=== PATIENT | male | born 1960 | race Caucasian/White ===

== ENCOUNTER 2017-09-02 08:04 | Emergency (ER) | payer OTHER ==
[~2017-09-02] VITALS: Ht 180.3 cm; Wt 117.0 kg
[~2017-09-02 08:04] MED LIST: AMLO5TAB22 PO; COUM5TAB PO; LANTINJ SC; LEVO88TA2 PO; LISI10TA PO; METO50TA11 PO; NOVOLOGP2 SQ; PERC10TA26 PO; SPIR25TA PO; VITA3000 PO; ZOCO40TA PO
[2017-09-02 08:13] VITALS: BP 171/94; PULSE 70; RESP 16; TEMP 98.5; O2SAT 99
[2017-09-02 08:25] LABS: BLOOD, URINE SMALL (NEG); GLUCOSE,URINE 250 mg/dL (NEG); KETONE, URINE NEG (NEG); NITRITE,URINE NEG (NEG)
[2017-09-02] MEDS ORDERED: CARV25TA PO (08:25)
[2017-09-02] MEDS ORDERED: ATOR80TA45 PO (08:25)
[2017-09-02] MEDS ORDERED: ISOS60TA PO (08:25)
[2017-09-02] MEDS ORDERED: LEVEMIR SQ (08:25)
[2017-09-02] MEDS ORDERED: RAMI10CA PO (08:25)
[2017-09-02] MEDS ORDERED: FURO1TAB60 PO (08:25)
[2017-09-02] MEDS ORDERED: NOVORP2 SQ (08:25)
[2017-09-02 08:33] LABS: METHOD OF COLLECTION CLEAN CATCH
[2017-09-02 08:34] LABS: COMMENT (UR) CULT NOT INDICATED; CULTURE IF INDICATED CULT NOT INDICATED; RBC, URINE 0-3 /hpf (0-3); SQUAMOUS EPITHELIAL CELL URINE 0-5 /hpf (0-5); URINE COLOR YELLOW (YELLW/STRAW)
[2017-09-02] MEDS ORDERED: MORPHINE SULFATE 4 MG/ML INJ IV PUSH ONE (08:45)
[2017-09-02] MEDS ORDERED: KETOROLAC TROMETHAMINE 30 MG/ML (IVP) VIAL IV PUSH ONE (08:45)
[2017-09-02] MEDS ORDERED: ONDANSETRON HCL 4 MG/2 ML VIAL IV PUSH ONE (08:45)
[2017-09-02] MEDS ORDERED: SODIUM CHLOR 0.9% 1000 ML INJ 1,000 ML IV ONE ×2 (08:45→09:30)
[2017-09-02 08:47] LABS: AUTOMATED NEUTROPHIL # 4.9 TH/MM3 (1.8-7.7); BASOPHIL % 0.5 % (0.0-2.0); EOSINOPHIL # 0.2 TH/MM3 (0-0.4); EOSINOPHIL % 2.4 % (0.0-4.0); HEMATOCRIT 46.3 % (39.0-51.0); HEMO FLAGS DIFF FINAL; LYMPH % 13.8 % (9.0-44.0); LYMPHOCYTE # 0.9 TH/MM3 (1.0-4.8); MEAN CORPUSCULAR HGB CONC 31.6 % (32.0-36.0); NEUT % 76.3 % (16.0-70.0); PLATELET COUNT 238 TH/MM3 (150-450); RED BLOOD COUNT 4.87 MIL/MM3 (4.50-5.90); RED CELL DISTRIBUTION WIDTH 14.4 % (11.6-17.2); WHITE BLOOD COUNT 6.5 TH/MM3 (4.0-11.0)
[2017-09-02 08:55] LABS: CHLORIDE 102 MEQ/L (98-107); POTASSIUM 4.2 MEQ/L (3.5-5.1); SODIUM (NA) 135 MEQ/L (136-145)
[2017-09-02 08:59] LABS: ANION GAP 8 MEQ/L (5-15); BICARBONATE 24.8 MEQ/L (21.0-32.0); BLOOD UREA NITROGEN 30 MG/DL (7-18)
[2017-09-02 09:02] LABS: ALT (GPT) 33 U/L (12-78); AST (GOT) 22 U/L (15-37); GLOMERULAR FILTRATION RATE 31 ML/MIN (>89)
[2017-09-02 09:03] LABS: TOTAL BILIRUBIN ADULT 0.8 MG/DL (0.2-1.0)
[2017-09-02 09:05] LABS: ALKALINE PHOSPHATASE 113 U/L (45-117)
--- NOTE | 2017-09-02 09:14 | RADRPT ---
EXAM DATE/TIME: 09/02/2017 08:53 [facility] COMPARISON: No previous studies available for comparison. INDICATIONS : Right flank pain. Low back pain. ORAL CONTRAST: No oral contrast ingested. RADIATION DOSE: 24.98 CTDIvol (mGy) MEDICAL HISTORY : Diabetes mellitus type 2. Renal calculi. Cerebrovascular disease. SURGICAL HISTORY : Appendectomy. Hernia repair. ENCOUNTER: Initial ACUITY: 2 days PAIN SCALE: 7/10 LOCATION: Right flank TECHNIQUE: Volumetric scanning of the abdomen and pelvis was performed. Using automated exposure control and ad justment of the mA and/or kV according to patient size, radiation dose was kept as low as reasonably achievable to obtain optimal diagnostic quality images. DICOM format image data is available electro nically for review and comparison. FINDINGS: LOWER LUNGS: The visualized lower lungs are clear. LIVER: Homogeneous density without lesion. There is no dilation of the biliary tree. No calcified gallston es. SPLEEN: Normal size without lesion. PANCREAS: Within normal limits. KIDNEYS: Kidneys are symmetrical in size without evidence for radiopaque renal calculi or hydronephrosis. Lobu lated contours without significant contour deforming renal abnormalities. ADRENAL GLANDS: Within normal limits. VASCULAR: There is no aortic aneurysm. BOWEL/MESENTERY: The stomach, small bowel, and colon demonstrate no acute abnormality. There is no free intraperitone al air or fluid. ABDOMINAL WALL: Intra-abdominal wall hernia mesh repair. RETROPERITONEUM: There is no lymphadenopathy. BLADDER: Unremarkable. REPRODUCTIVE: Within normal limits. INGUINAL: There is no lymphadenopathy or hernia. MUSCULOSKELETAL: Within normal limits for patient age. CONCLUSION: 1. No acute CT findings in the abdomen or pelvis. Specifically, No radiopaque renal calculi or obstru ctive uropathy. 2. Intact anterior abdominal wall hernia mesh repair. Donny Starr MD on September 02, 2017 at 9:07 Board Certified Radiologist. This report was verified electronically.
[2017-09-02 09:38] VITALS: BP 144/73; PULSE 67; RESP 20; O2SAT 94
[2017-09-02 10:34] VITALS: BP 159/82; PULSE 67; RESP 16; O2SAT 91
[2017-09-02] MEDS ORDERED: TRAM50TA PO (10:45)
--- NOTE | 2017-09-02 10:45 | PD ---
HPI Chief Complaint: Flank/Kidney Pain Time Seen by Provider: 08:22 Travel History International Travel<30 days: No Contact w/Intl Traveler<30days: No Traveled to known affect area: No History of Present Illness HPI This is a 57-year-old male who presents to the emergency department with back pain that's been going on for 3 days, intermittent, worse with laying down at night and worse with movement, nonradiating, associated with some nausea and vomiting. Patient thought he might of a kidney stone because he's had in the past. He denies any fevers or chills and denies any recent injuries. PFSH Past Medical History Cancer: No Cardiovascular Problems: No High Cholesterol: Yes Cerebrovascular Accident: Yes Diabetes: Yes Patient Takes Glucophage: No Diminished Hearing: Yes ([place] RT EAR) Endocrine: Yes Genitourinary: No Hepatitis: No Hiatal Hernia: No Hypertension: Yes Immune Disorder: No Musculoskeletal: No Neurologic: Yes (STROKE HX/ LEFT SIDE WEAKNESS) Psychiatric: No Respiratory: No Thyroid Disease: Yes Influenza Vaccination: Yes ?: Not Past Surgical History Abdominal Surgery: Yes (APPY) AICD: No Appendectomy: Yes Genitourinary Surgery: Yes (MULTI ESWL) Joint Replacement: No Pacemaker: No Other Surgery: Yes Social History Alcohol Use: Yes Tobacco Use: No Substance Use: No Allergies-Medications (Allergen,Severity, Reaction): Coded Allergies: No Known Allergies (Verified Adverse Reaction, Unknown, 09/02/17) Reported Meds & Prescriptions Reported Meds & Active Scripts Active Reported Levemir Inj (Insulin Detemir) 1,000 unit/ 10 ML Vial 30 Units SQ HS Do not mix with any other Insulin. Lasix (Furosemide) 40 Mg Tab 40 Mg PO DAILY Ramipril 10 Mg Cap 10 Mg PO BID Carvedilol 25 Mg Tab 25 Mg PO BID Isosorbide Mononitrate ER (Isosorbide Mononitrate) 60 Mg Tab 60 Mg PO DAILY Atorvastatin (Atorvastatin Calcium) 80 Mg Tab 80 Mg PO DAILY Novolin R Inj (Insulin Human Regular) 1,000 Unit/10 Ml Vial 0 SQ DIRECTED Sliding Scale As Directed. Review of Systems Except as stated in HPI: all other systems reviewed are Neg Physical Exam Narrative GENERAL:Well appearing, no acute distress SKIN: Focused skin assessment warm and dry. HEAD: Atraumatic. Normocephalic. EYES: Pupils equal and round. No injection or drainage. ENT: Moist mucous membranes NECK: Trachea midline. CARDIOVASCULAR: Regular rate and rhythm. No murmur appreciated. RESPIRATORY: Clear to auscultation. Breath sounds equal bilaterally. GASTROINTESTINAL: Abdomen soft, non-tender, nondistended. MUSCULOSKELETAL: Tender to palpation over the bilateral lower lumbar paraspinal muscles with no focal vertebral tenderness. NEUROLOGICAL: Awake and alert. No obvious cranial nerve deficits. Moving all extremities. PSYCHIATRIC: Appropriate mood and affect; insight and judgment normal. Data Data Last Documented VS Vital Signs Date Time Temp Pulse Resp B/P (MAP) Pulse Ox O2 Delivery O2 Flow Rate FiO2 09/02/17 10:34 67 16 159/82 (107) 91 Room Air 09/02/17 08:13 98.5 Orders Orders Urinalysis - C+S If Indicated (09/02/17 08:19) Ct Abd/Pel W/O Iv Contrast (09/02/17 ) Complete Blood Count With Diff (09/02/17 08:35) Comprehensive Metabolic Panel (09/02/17 08:35) ^ Insert Iv (09/02/17 08:35) Sodium Chlor 0.9% 1000 Ml Inj (Ns 1000 M (09/02/17 08:45) Ketorolac Inj (Toradol Inj) (09/02/17 08:45) Ondansetron Inj (Zofran Inj) (09/02/17 08:45) Morphine Inj (Morphine Inj) (09/02/17 08:45) Sodium Chlor 0.9% 1000 Ml Inj (Ns 1000 M (09/02/17 09:30) Creatine Kinase (Cpk) (09/02/17 09:25) Lipase (09/02/17 09:26) Labs Laboratory Tests Test 09/02/17 08:20 09/02/17 08:40 09/02/17 09:36 Urine Collection Type CLEAN CATCH Urine Color YELLOW Urine Turbidity CLEAR Urine pH 6.0 Urine Specific [place] 1.014 Urine Protein 100 mg/dL Urine Glucose (UA) 250 mg/dL Urine Ketones NEG mg/dL Urine Occult Blood SMALL Urine Nitrite NEG Urine Bilirubin NEG Urine Leukocyte Esterase NEG Urine RBC 0-3 /hpf Urine Squamous Epithelial Cells 0-5 /hpf Microscopic Urinalysis Comment CULT NOT INDICATED Urine Collection Time 08:20 White Blood Count 6.5 TH/MM3 Red Blood Count 4.87 MIL/MM3 Hemoglobin 14.6 GM/DL Hematocrit 46.3 % Mean Corpuscular Volume 95.0 FL Mean Corpuscular Hemoglobin 30.0 PG Mean Corpuscular Hemoglobin Concent 31.6 % Red Cell Distribution Width 14.4 % Platelet Count 238 TH/MM3 Mean Platelet Volume 8.0 FL Neutrophils (%) (Auto) 76.3 % Lymphocytes (%) (Auto) 13.8 % Monocytes (%) (Auto) 7.0 % Eosinophils (%) (Auto) 2.4 % Basophils (%) (Auto) 0.5 % Neutrophils # (Auto) 4.9 TH/MM3 Lymphocytes # (Auto) 0.9 TH/MM3 Monocytes # (Auto) 0.5 TH/MM3 Eosinophils # (Auto) 0.2 TH/MM3 Basophils # (Auto) 0.0 TH/MM3 CBC Comment DIFF FINAL Differential Comment Blood Urea Nitrogen 30 MG/DL Creatinine 2.20 MG/DL Random Glucose 184 MG/DL Total Protein 7.6 GM/DL Albumin 3.5 GM/DL Calcium Level 8.3 MG/DL Alkaline Phosphatase 113 U/L Aspartate Amino Transf (AST/SGOT) 22 U/L Alanine Aminotransferase (ALT/SGPT) 33 U/L Total Bilirubin 0.8 MG/DL Sodium Level 135 MEQ/L Potassium Level 4.2 MEQ/L Chloride Level 102 MEQ/L Carbon Dioxide Level 24.8 MEQ/L Anion Gap 8 MEQ/L Estimat Glomerular Filtration Rate 31 ML/MIN Total Creatine Kinase 137 U/L Lipase 375 U/L MDM Medical Decision Making Medical Screen Exam Complete: Yes Emergency Medical Condition: Yes Interpretation(s) Afebrile, no tachycardia, hypertension improved throughout stay No leukocytosis Renal insufficiency similar to prior CK is normal Lipase is normal Urinalysis demonstrates glucosuria Last 24 hours Impressions Abdomen/Pelvis CT 09/02/17 0000 Signed Impressions: Service Date/Time: Saturday, September 02, 2017 08:53 - CONCLUSION: 1. No acute CT findings in the abdomen or pelvis. Specifically, No radiopaque renal calculi or obstructive uropathy. 2. Intact anterior abdominal wall hernia mesh repair. Donny Starr MD Differential Diagnosis Nephrolithiasis, degenerative disc disease, herniated disc, abdominal aortic aneurysm, urinary tract infection Narrative Course This is a 57-year-old male who presents to the emergency department with low back pain that's been going on for 3 days associated with some nausea and vomiting. He has a benign abdominal exam. Labs are obtained which were all reassuring. CT abdomen and pelvis and lumbar spine are reassuring. I am Uncertain which causing his pain. I think it's likely musculoskeletal given the positional component. I think we've adequately ruled out life threats in the emergency department. He'll be discharged on a short course of tramadol and was asked to follow-up with his primary care physician. He was given 2 L of IV fluids in the setting of slightly worsening renal insufficiency Diagnosis Primary Impression: Musculoskeletal back pain Patient Instructions: General Instructions Additional Instructions: If you develop weakness of your legs, difficulty walking, numbness of your legs or your genital or rectal area, loss of your bowel or bladder, or difficulty urinating return to the emergency department immediately. Followup with your primary care physician in one week if your symptoms have not improved. Med/Other Pt SpecificInfo: Prescription(s) given Scripts Tramadol (Tramadol) 50 Mg Tab 50 MG PO Q6H Y for PAIN, #15 TAB 0 Refills Prov: Kathia Lopez MD 09/02/17 Disposition: 01 DISCHARGE HOME Condition: Stable Kathia Lopez MD Sep 02, 2017 10:45
== END 2017-09-02 11:08 | disposition home or self-care (01) ==
LOC: PHED 08:04
DX: M54.5 Low back pain (principal); R11.2 Nausea with vomiting, unspecified; N28.9 Disorder of kidney and ureter, unspecified; E11.9 Type 2 diabetes mellitus without complications; E78.00 Pure hypercholesterolemia, unspecified; I10 Essential (primary) hypertension; Z79.4 Long term (current) use of insulin; Z87.442 Personal history of urinary calculi
CPT/HCPCS: 74176; 80053; 81001; 82550; 83690; 85025; 96361; 96374; 96375; 99285; J1885; J2270; J2405; J7030

== ENCOUNTER 2017-09-04 14:48 | Emergency (ER) | payer OTHER ==
[~2017-09-04] VITALS: Ht 180.3 cm; Wt 116.0 kg
[~2017-09-04 14:48] MED LIST changes: -AMLO5TAB22 PO; +ATOR80TA45 PO; +CARV25TA PO; -COUM5TAB PO; +FURO1TAB60 PO; +ISOS60TA PO; -LANTINJ SC; +LEVEMIR SQ; -LEVO88TA2 PO; -LISI10TA PO; -METO50TA11 PO; -NOVOLOGP2 SQ; +NOVORP2 SQ; -PERC10TA26 PO; +RAMI10CA PO; -SPIR25TA PO; +TRAM50TA PO; -VITA3000 PO; -ZOCO40TA PO
[2017-09-04 15:35] VITALS: BP 171/75; PULSE 65; RESP 18; TEMP 98.8; O2SAT 98
--- NOTE | 2017-09-04 16:29 | PD ---
HPI Chief Complaint: Flank/Kidney Pain Time Seen by Provider: 16:28 Travel History International Travel<30 days: No Contact w/Intl Traveler<30days: No Traveled to known affect area: No History of Present Illness HPI PMHX: HYPERCHOL, HTN, KIDNEY STONES, PFSH Past Medical History Cancer: No Cardiovascular Problems: No High Cholesterol: Yes Cerebrovascular Accident: Yes Diabetes: Yes Diminished Hearing: Yes ([place] RT EAR) Endocrine: Yes Genitourinary: No Hepatitis: No Hiatal Hernia: No Hypertension: Yes Immune Disorder: No Musculoskeletal: No Neurologic: Yes (STROKE HX/ LEFT SIDE WEAKNESS) Psychiatric: No Respiratory: No Thyroid Disease: Yes Past Surgical History Abdominal Surgery: Yes (APPY) AICD: No Appendectomy: Yes Genitourinary Surgery: Yes (MULTI ESWL) Joint Replacement: No Pacemaker: No Other Surgery: Yes Social History Alcohol Use: Yes Tobacco Use: No Substance Use: No Allergies-Medications (Allergen,Severity, Reaction): Coded Allergies: No Known Allergies (Verified Adverse Reaction, Unknown, 09/04/17) Reported Meds & Prescriptions Reported Meds & Active Scripts Active Tramadol (Tramadol HCl) 50 Mg Tab 50 Mg PO Q6H PRN Reported Levemir Inj (Insulin Detemir) 1,000 unit/ 10 ML Vial 30 Units SQ HS Do not mix with any other Insulin. Lasix (Furosemide) 40 Mg Tab 40 Mg PO DAILY Ramipril 10 Mg Cap 10 Mg PO BID Carvedilol 25 Mg Tab 25 Mg PO BID Isosorbide Mononitrate ER (Isosorbide Mononitrate) 60 Mg Tab 60 Mg PO DAILY Atorvastatin (Atorvastatin Calcium) 80 Mg Tab 80 Mg PO DAILY Novolin R Inj (Insulin Human Regular) 1,000 Unit/10 Ml Vial 0 SQ DIRECTED Sliding Scale As Directed. Data Data Last Documented VS Vital Signs Date Time Temp Pulse Resp B/P (MAP) Pulse Ox O2 Delivery O2 Flow Rate FiO2 09/04/17 19:15 75 16 99 09/04/17 19:02 Room Air 09/04/17 18:38 2.00 09/04/17 15:35 98.8 Orders Orders Urinalysis - C+S If Indicated (09/04/17 15:32) Complete Blood Count With Diff (09/04/17 16:34) Comprehensive Metabolic Panel (09/04/17 16:34) Lipase (09/04/17 16:34) Iv Access Insert/Monitor (09/04/17 16:34) Ecg Monitoring (09/04/17 16:34) Oximetry (09/04/17 16:34) NPO (09/04/17 16:34) Morphine Inj (Morphine Inj) (09/04/17 16:45) Ondansetron Inj (Zofran Inj) (09/04/17 16:45) Sodium Chlor 0.9% 1000 Ml Inj (Ns 1000 M (09/04/17 16:34) Ketorolac Inj (Toradol Inj) (09/04/17 16:45) Ct Abd/Pel W/O Iv Contrast (09/04/17 17:24) Hydralazine Inj (Apresoline Inj) (09/04/17 18:45) Ed Discharge Order (09/04/17 18:59) Labs Laboratory Tests Test 09/04/17 16:20 09/04/17 16:45 Urine Collection Type CLEAN CATCH Urine Color YELLOW Urine Turbidity CLEAR Urine pH 6.5 Urine Specific [place] 1.017 Urine Protein 100 mg/dL Urine Glucose (UA) 100 mg/dL Urine Ketones NEG mg/dL Urine Occult Blood TRACE Urine Nitrite NEG Urine Bilirubin NEG Urine Leukocyte Esterase NEG Urine Squamous Epithelial Cells 0-5 /hpf Urine Amorphous Sediment FEW Microscopic Urinalysis Comment CULT NOT INDICATED Urine Collection Time 1620 White Blood Count 7.3 TH/MM3 Red Blood Count 4.72 MIL/MM3 Hemoglobin 14.4 GM/DL Hematocrit 44.2 % Mean Corpuscular Volume 93.6 FL Mean Corpuscular Hemoglobin 30.5 PG Mean Corpuscular Hemoglobin Concent 32.6 % Red Cell Distribution Width 14.3 % Platelet Count 219 TH/MM3 Mean Platelet Volume 8.4 FL Neutrophils (%) (Auto) 82.7 % Lymphocytes (%) (Auto) 9.9 % Monocytes (%) (Auto) 5.4 % Eosinophils (%) (Auto) 1.7 % Basophils (%) (Auto) 0.3 % Neutrophils # (Auto) 6.1 TH/MM3 Lymphocytes # (Auto) 0.7 TH/MM3 Monocytes # (Auto) 0.4 TH/MM3 Eosinophils # (Auto) 0.1 TH/MM3 Basophils # (Auto) 0.0 TH/MM3 CBC Comment DIFF FINAL Differential Comment Blood Urea Nitrogen 23 MG/DL Creatinine 1.80 MG/DL Random Glucose 181 MG/DL Total Protein 7.6 GM/DL Albumin 3.3 GM/DL Calcium Level 8.9 MG/DL Alkaline Phosphatase 109 U/L Aspartate Amino Transf (AST/SGOT) 22 U/L Alanine Aminotransferase (ALT/SGPT) 26 U/L Total Bilirubin 0.7 MG/DL Sodium Level 135 MEQ/L Potassium Level 4.6 MEQ/L Chloride Level 101 MEQ/L Carbon Dioxide Level 26.3 MEQ/L Anion Gap 8 MEQ/L Estimat Glomerular Filtration Rate 39 ML/MIN Lipase 102 U/L [facility] Medical Decision Making Medical Screen Exam Complete: Yes Emergency Medical Condition: Yes Medical Record Reviewed: Yes Differential Diagnosis PYELO V AAA V KIDNEY STONES V UTI Narrative Course PATIENT'S UA IS NEG FOR UTI, CT NEG FOR KIDNEY STONE/ Diagnosis Primary Impression: FLANK PAIN NOS Additional Impression: HYPERTENSION Patient Instructions: Flank Pain (ED), General Instructions Scripts Tramadol (Ultram) 50 Mg Tab 50 MG PO Q4H Y for PAIN, #14 TAB 0 Refills Prov: Sanju Forbes MD 09/04/17 Ondansetron Odt (Zofran Odt) 4 Mg Tab 4 MG SL Q6HR Y for Nausea/Vomiting, #20 TAB 0 Refills Prov: Sanju Forbes MD 09/04/17 Disposition: 01 DISCHARGE HOME Condition: Stable Sanju Forbes MD Sep 04, 2017 16:29
[2017-09-04] MEDS ORDERED: SODIUM CHLOR 0.9% 1000 ML INJ 1,000 ML IV SCH (16:34)
[2017-09-04 16:42] LABS: GLUCOSE,URINE 100 mg/dL (NEG); KETONE, URINE NEG (NEG); NITRITE,URINE NEG (NEG); PH, URINE 6.5 (5.0-8.5)
[2017-09-04 16:43] VITALS: RESP 18; O2SAT 98
[2017-09-04] MEDS ORDERED: MORPHINE SULFATE 4 MG/ML INJ IV PUSH ONE (16:45)
[2017-09-04] MEDS ORDERED: KETOROLAC TROMETHAMINE 30 MG/ML (IVP) VIAL IVP ONE (16:45)
[2017-09-04] MEDS ORDERED: ONDANSETRON HCL 4 MG/2 ML VIAL IVP ONE (16:45)
[2017-09-04 16:52] LABS: BLOOD, URINE TRACE (NEG)
[2017-09-04 17:02] LABS: AUTOMATED NEUTROPHIL # 6.1 TH/MM3 (1.8-7.7); BASOPHIL % 0.3 % (0.0-2.0); EOSINOPHIL # 0.1 TH/MM3 (0-0.4); EOSINOPHIL % 1.7 % (0.0-4.0); HEMATOCRIT 44.2 % (39.0-51.0); LYMPH % 9.9 % (9.0-44.0); LYMPHOCYTE # 0.7 TH/MM3 (1.0-4.8); MEAN CELL VOLUME 93.6 FL (80.0-100.0); MEAN CORPUSCULAR HEMOGLOBIN 30.5 PG (27.0-34.0); MEAN CORPUSCULAR HGB CONC 32.6 % (32.0-36.0); MONO % 5.4 % (0.0-8.0); NEUT % 82.7 % (16.0-70.0); PLATELET COUNT 219 TH/MM3 (150-450); RED BLOOD COUNT 4.72 MIL/MM3 (4.50-5.90); RED CELL DISTRIBUTION WIDTH 14.3 % (11.6-17.2); WHITE BLOOD COUNT 7.3 TH/MM3 (4.0-11.0)
[2017-09-04 17:03] LABS: HEMO FLAGS DIFF FINAL
[2017-09-04 17:19] LABS: CHLORIDE 101 MEQ/L (98-107); POTASSIUM 4.6 MEQ/L (3.5-5.1); SODIUM (NA) 135 MEQ/L (136-145)
[2017-09-04 17:24] LABS: ANION GAP 8 MEQ/L (5-15); BICARBONATE 26.3 MEQ/L (21.0-32.0); BLOOD UREA NITROGEN 23 MG/DL (7-18)
[2017-09-04 17:26] LABS: METHOD OF COLLECTION CLEAN CATCH; URINE COLOR YELLOW (YELLW/STRAW)
[2017-09-04 17:27] LABS: ALT (GPT) 26 U/L (12-78); AST (GOT) 22 U/L (15-37); GLOMERULAR FILTRATION RATE 39 ML/MIN (>89)
[2017-09-04 17:27] LABS: COMMENT (UR) CULT NOT INDICATED; CULTURE IF INDICATED CULT NOT INDICATED; SQUAMOUS EPITHELIAL CELL URINE 0-5 /hpf (0-5)
[2017-09-04 17:29] LABS: TOTAL BILIRUBIN ADULT 0.7 MG/DL (0.2-1.0)
[2017-09-04 17:30] LABS: ALKALINE PHOSPHATASE 109 U/L (45-117)
--- NOTE | 2017-09-04 17:50 | RADRPT ---
EXAM DATE/TIME: 09/04/2017 17:27 [facility] COMPARISON: CT ABDOMEN & PELVIS W/O CONTRAST, September 02, 2017, 8:53. INDICATIONS : Left flank pain. ORAL CONTRAST: No oral contrast ingested. RADIATION DOSE: 24.85 CTDIvol (mGy) MEDICAL HISTORY : Cerebrovascular disease. Renal calculi. Hypertension.Diabetes. SURGICAL HISTORY : Appendectomy. ENCOUNTER: Initial ACUITY: 3 days PAIN SCALE: 5/10 LOCATION: Left flank TECHNIQUE: Volumetric scanning of the abdomen and pelvis was performed. Using automated exposure control and ad justment of the mA and/or kV according to patient size, radiation dose was kept as low as reasonably achievable to obtain optimal diagnostic quality images. DICOM format image data is available electro nically for review and comparison. FINDINGS: Lung bases demonstrate minimal atelectasis. No acute findings in the liver, spleen, adrenals, kidneys or pancreas. No gallstones or ductal dilatation. No free fluid. No bowel obstruction. No adenopathy. Previous ventral hernia repair. CONCLUSION: 1. No acute findings. Specifically no area of calculi or obstructive uropathy. 2. Previous ventral hernia repair. No obstruction, free fluid or free air. Saul Cantor MD on September 04, 2017 at 17:44 Board Certified Radiologist. This report was verified electronically.
[2017-09-04 18:38] VITALS: BP 206/102; PULSE 65; RESP 16; O2SAT 97
[2017-09-04] MEDS ORDERED: hydrALAZINE HCL 20 MG/ML VIAL IV PUSH ONE (18:45)
[2017-09-04 19:02] VITALS: BP 187/89; PULSE 75; RESP 16; O2SAT 99
[2017-09-04] MEDS ORDERED: ZOFR4TAB3 SL (20:30)
[2017-09-04] MEDS ORDERED: TRAM50 PO (20:30)
== END 2017-09-04 21:01 | disposition home or self-care (01) ==
LOC: PHED 14:48
DX: R10.9 Unspecified abdominal pain (principal); I10 Essential (primary) hypertension; E11.9 Type 2 diabetes mellitus without complications; Z79.4 Long term (current) use of insulin
CPT/HCPCS: 74176; 80053; 81001; 83690; 85025; 96361; 96374; 96375; 99285; J0360; J1885; J2270; J2405; J7030